=== PATIENT | male | born 1985 | race Caucasian/White ===

== ENCOUNTER → 2020-10-19 07:25 | Outpatient (CLI) | payer SELFPAY ==
[2020-10-20 19:51] LABS: SARS-CoV-2 RNA PCR Negative
== END ==
PROVIDERS: PCP Nurse Practitioner Family; Visit Provider Nurse Practitioner Family
DX: Z11.52 Encounter for screening for COVID-19 (principal); R05 Cough; R09.82 Postnasal drip; Z20.822 Contact with and (suspected) exposure to COVID-19
CPT/HCPCS: C9803; U0003; U0005

== ENCOUNTER → 2021-03-05 10:47 | Outpatient (CLI) | payer SELFPAY ==
[2021-03-05 21:56] LABS: SARS-CoV-2 RNA PCR Positive
== END ==
PROVIDERS: PCP Family Medicine; Visit Provider Nurse Practitioner Family
DX: U07.1 COVID-19 (principal)
CPT/HCPCS: C9803; U0003; U0005